=== PATIENT | female | born 1960 | race Caucasian/White ===

== ENCOUNTER 2017-08-12 19:16 | Emergency (ER) | payer MEDICAID ==
[~2017-08-12] VITALS: Ht 172.7 cm; Wt 72.2 kg
[~2017-08-12 19:16] MED LIST: BACL10TA PO; CHLO25CA10 PO; CYCL-1 PO; ONDA8TAB9 PO
[2017-08-12] MEDS ORDERED: LIDOcaine 1.5% w/epinephrine 1:200,000 5ml ampul IJ ONE (21:05)
[2017-08-12] MEDS ORDERED: TETanus/Pertussis (Acell)/Diphther VAC/PF (Tdap-Adult) 0.5ml syringe IM ONE (21:05)
[2017-08-12] MEDS ORDERED: CEPH-572 PO (21:32)
[2017-08-12] MEDS ORDERED: SULF1TAB49 PO (21:32)
[2017-08-12] MEDS ORDERED: IBUP-1986 PO (21:32)
[2017-08-12 21:43] VITALS: BP 122/74
== END 2017-08-12 21:44 | disposition home or self-care (01) ==
LOC: ER 19:17
DX: L03.012 Cellulitis of left finger (principal); G89.29 Other chronic pain; F11.10 Opioid abuse, uncomplicated; F15.10 Other stimulant abuse, uncomplicated; Z88.6 Allergy status to analgesic agent; Z88.8 Allergy status to other drugs, medicaments and biological substances; Z79.899 Other long term (current) drug therapy; Z56.0 Unemployment, unspecified
CPT/HCPCS: 10060; 90471; 90715; 99283; A6223; A6449; J3490

== ENCOUNTER 2020-02-04 11:00 | Emergency (ER) | payer MEDICAID ==
[~2020-02-04] VITALS: Ht 170.2 cm; Wt 84.1 kg
[~2020-02-04 11:00] MED LIST changes: +IBUP-1986 PO
--- NOTE | 2020-02-04 12:13 | NUR ---
vascular study being performed
[2020-02-04 12:31] VITALS: BP 130/80
--- NOTE | 2020-02-04 12:31 | NUR ---
assumed care of pt from Tracy ALEXANDRE, pt is resting quietly on nitin, "I am ready to go",
== END 2020-02-04 12:49 | disposition home or self-care (01) ==
LOC: ER 11:01
DX: M25.561 Pain in right knee (principal); G89.29 Other chronic pain; F12.90 Cannabis use, unspecified, uncomplicated; F15.90 Other stimulant use, unspecified, uncomplicated; F11.90 Opioid use, unspecified, uncomplicated; Z98.51 Tubal ligation status; Z72.89 Other problems related to lifestyle; Z56.0 Unemployment, unspecified; Z88.8 Allergy status to other drugs, medicaments and biological substances; Z79.899 Other long term (current) drug therapy
CPT/HCPCS: 93971; 99284